=== PATIENT | male | born 1950 | race Caucasian/White ===

== ENCOUNTER → 2024-06-25 14:55 | Outpatient (BNVA) | payer SELFPAY | PROVIDERS: PCP Nurse Practitioner Family; Visit Provider Nurse Practitioner Family | DX: Z12.5 Encounter for screening for malignant neoplasm of prostate (principal); R60.9 Edema, unspecified; L03.90 Cellulitis, unspecified; R10.811 Right upper quadrant abdominal tenderness | CPT/HCPCS: 80053; 80061; 80074; 85025; G0103 ==

== ENCOUNTER 2024-07-10 06:45 | Outpatient (CLI) | payer MEDICAID, SELFPAY ==
--- NOTE | 2024-07-10 06:45 | US_ITS ---
WS: [id number] TESTICULAR ULTRASOUND HISTORY: N50.89 - Other specified disorders of the male genital or... COMPARISON: None available. TECHNIQUE: Real-time and color Doppler imaging or utilized to perform a testicular ultrasound. Right testicle: 4.0 cm x 2.2 cm x 1.3 cm. Normal size and echogenicity. No mass or torsion. Flow is noted within the testicle although not robust. No mass. No significant hydrocele. Right epididymis: Normal epididymis with no increased vascularity. Left testicle: 3.3 cm x 2.6 cm x 2.2 cm. Normal size and echogenicity. No mass or torsion. Doppler is present in the testicle but not robust. No significant hydrocele. Left epididymis: Normal epididymis with no increased vascularity. Marked scrotal wall thickening with edema. Greatest towards the base of the penis. There is edema. Burr spect omental hernia near the inguinal canals. US/US scrotum [id number] IMPRESSION: 1. Difficult evaluation of the testicles due to the position of the testicles. No mass or torsion identified. 2. Marked scrotal wall thickening greatest towards the base of the penis. Hype rechoic soft tissue along the inguinal canal. Suspect inguinal hernias containi ng omental fat only. No bowel identified.
== END 2024-07-10 06:47 | disposition home or self-care (01) ==
PROVIDERS: PCP Nurse Practitioner Family; Visit Provider Nurse Practitioner Family
DX: N50.89 Other specified disorders of the male genital organs (principal); K40.90 Unilateral inguinal hernia, without obstruction or gangrene, not specified as recurrent
CPT/HCPCS: 76870